=== PATIENT | female | born 1975 | race Caucasian/White ===

== ENCOUNTER → 2018-12-07 | Outpatient (CLI) | payer SELFPAY ==
[~2018-12-07] VITALS: Ht 167.6 cm; Wt 90.9 kg
[~2018-12-07] MED LIST: BENADRYL; FLUTICASON0.05 MG/AC NS; SINGULAIR PO
[2018-12-07 19:37] VITALS: BP 130/77
== END ==
LOC: AMSURD 19:25
DX: R22.0 Localized swelling, mass and lump, head (principal)
CPT/HCPCS: J2930

== ENCOUNTER → 2021-04-13 | Day surgery (SDC) | payer OTHER | LOC: MSO 09:04 | DX: K29.60 Other gastritis without bleeding (principal); F41.9 Anxiety disorder, unspecified; G43.909 Migraine, unspecified, not intractable, without status migrainosus; Z79.899 Other long term (current) drug therapy; Z91.09 Other allergy status, other than to drugs and biological substances | CPT/HCPCS: 00731; J2704; J7120 ==